=== PATIENT | male | born 1985 | race Caucasian/White ===

== ENCOUNTER 2024-05-19 15:49 | Inpatient (IN) | payer MEDICAID, SELFPAY ==
[2024-05-19] VITALS (63 sets, daily range): BP systolic 92–156; BP diastolic 56–125; PULSE 91–125; RESP 13–50; TEMP 38.1; O2SAT 89–97
--- NOTE | 2024-05-19 15:30 | DI.CT_ITS ---
Exam(s) CT HEAD CERVICAL SPINE WO EXAM: CT HEAD CERVICAL SPINE WO CLINICAL HISTORY: new onset seizure. TECHNIQUE: Imaging Protocol: Axial computed tomography images with coronal and sagittal reformatted images were created and reviewed COMPARISON: CT HEAD NECK FACIAL WO from 12/20/2015 FINDINGS: Head CT Ventricles and Extra axial spaces: Normal in size and morphology for the patient's age. Hemorrhage: None. Cerebral parenchyma: No evidence of mass or acute infarct. Midline shift: None. Brainstem/Cerebellum: Normal. Calvarium: Normal. Visualized Paranasal sinuses/Mastoids: Minimal mucosal thickening in the ethmoid sinuses. Soft tissues: Unremarkable. Cervical Spine CT BONES: Vertebral body heights are maintained. Alignment is normal. There is no evidence of acute frac ture. SOFT TISSUES: No paraspinal hematoma. The airway appears intact. No pneumothorax is seen at the lung apices. IMPRESSION: Head CT: No acute abnormality. C-spine CT: no acute abnormality. RADIATION DOSE DELIVERED: Total DLP DATA REPOSITORY: All CT scans at this facility are submitted to the National Radiology Data Registry (NRDR) Dose Index Registry (DIR) with the [employer] (ACR). RADIATION OPTIMIZATION: All CT scans at this facility use at least one of these dose optimization te chniques: automated exposure control; mA and/or kV adjustment per patient size (includes targeted exa ms where dose is matched to clinical indication); or iterative reconstruction.
--- NOTE | 2024-05-19 15:30 | RT.EKG_ITS ---
APPROVED REPORT Exam: Resting ECG Reason for Exam: seizure Patient Location: E HR:113 bpm ECG Measurements Heart Rate 113 AXIS MS 140 P 68 QRSd 89 QRS 66 QT 320 T 39 QTc 439 Conclusion Sinus tachycardia...rate> [address] segment or T wave abnormalities to suggest occlusive PA
--- NOTE | 2024-05-19 16:00 | W.ED.GENAD ---
Discharge Plan Disposition Patient Disposition: Admit to [facility] Condition: Serious Discharge Details Chief Complaint: Seizure Clinical Impression: Alcohol abuse with withdrawal, Seizure Primary Care Provider: None,None ED Provider: Hope Chu Home Meds and New Rx's Prescriptions: No Action No Known Home Meds HPI General Mode of arrival: EMS. Date/Time Provider Initiated Documentation: 05/19/24 15:57. Limitations to Documentation: no limitations. Information obtained by: patient and EMS. HPI Narrative: 38yo M with hx ETOH withdrawal, no prior hx of withdrawal seizures or hospitalizations, no prior hx of seizures, presenting with concern for seizure. Patient typically drinks 12-18 cans of beer daily. Has had nausea and vomiting for the past two days, no alcohol since last night. Today stood up get to the bathroom then fell back to the couch; brother reportedly witnessed whole body shaking for about 30 seconds. Patient remembers this event. Per EMS seemed to be post-ictal on their arrival. Patient reports that he feels back to normal now. No headache, numbness, weakness, vision changes, chest pain, shortness of breath, abdominal pain, fever, or other concerns. Related Data Home Medications ?Medication ?Instructions ?Recorded ?Confirmed Unknown [No Known Home Meds] 05/19/24 05/19/24 Allergies Allergy/AdvReac Type Severity Reaction Status Date / Time No Known Allergies Allergy Verified 05/19/24 15:50 General Stated Complaint: Seizure MELITA: 3 Review of Systems Narrative: see HPI Exam Narrative Exam Narrative: General: Alert, well appearing, well nourished, in no acute distress. Head: Normocephalic, atraumatic Neck: Trachea midline, ?Neck supple. ENT: ?MMM.? No oropharygeal lesions or exudate. Cardiac: ?RRR, no murmurs appreciated Resp: No respiratory distress. CTAB. Abd: ?Soft, non-distended, nontender : ?No suprapubic tenderness. No CVA tenderness. Extremities: ?No deformities.? No peripheral edema. Neuro: ? GCS 15.? PERRL.? EOMI.? Fluent speech, no dysarthria. Motor- 5/5 strength symmetric bilateral upper and lower extremities Sensation- ?Intact to light touch and symmetric multiple dermatomes including upper and lower extremities Coordination- No dysmetria on finger to nose. Diffuse tremors Reflexes- 2/4 achilles & patellar, no clonus Gait/station: ?Normal stance.? No truncal ataxia. Steady gait with equal normal steps CRANIAL NERVES: II: Pupils equal and reactive, III, IV, : EOM intact, no gaze preference or deviation, no nystagmus. V: normal sensation in V1, V2, and V3 segments bilaterally VII: no asymmetry, no nasolabial fold flattening VIII: normal hearing to speech IX, X: normal palatal elevation, no uvular deviation XI: 5/5 head turn and 5/5 shoulder shrug bilaterally XII: midline tongue protrusion Course Vital Signs Vital signs: Vital Signs Temperature 38.1 C H 05/19/24 15:51 Pulse 125 H 05/19/24 15:51 Respiratory Rate 20 05/19/24 15:51 Blood Pressure 156/115 H 05/19/24 15:51 Pulse Oximetry 94 05/19/24 15:51 Temperature 38.1 C H 05/19/24 15:51 Pulse 125 H 05/19/24 15:51 Respiratory Rate 20 05/19/24 15:51 Blood Pressure 156/115 H 05/19/24 15:51 Pulse Oximetry 94 05/19/24 15:51 Oxygen Delivery Method Room Air 05/19/24 15:51 Oxygen Flow Rate 0 05/19/24 15:51 Pain Level 0 05/19/24 15:51 Medical Decision Making 38yo M with hx ETOH withdrawal, no prior hx of withdrawal seizures or hospitalizations, no prior hx of seizures, presenting with concern for seizure. Patient typically drinks 12-18 cans of beer daily. Has had nausea and vomiting for the past two days, no alcohol since last night. Today stood up get to the bathroom then fell back to the couch; brother reportedly witnessed whole body shaking for about 30 seconds. Given 2mg ativan on arrival to the ED. Tachycardiac and slightly hypertensive on arrival, febrile to 38.1 (given 1g of tylenol). Anxious on exam with whole body tremors, otherwise benign physical and neurologic exam. No headache, neck pain, or neck stiffness; not suggestive of meningitis or encephalitis. CIWA on arrival 8. Concerning for possible ETOH withdrawal seizure vs convulsive syncope in the setting of volume depletion. Less likely cardiogenic syncope. Not overtly septic and denies infectious symptoms however is febrile so blood cutlures sent. Wound not treat empirically with abx at this time. [place] momin. -EKG ST, appropriate intervals, no ST segment or T wave abnormalities to suggest occlusive MD. -Respiratory viral swab negative. -Labs reviewed as below, CBC reassuring with no leukocytosis and mild anemia, CMP with mildly elevated Cr at 1.4 and no actionable abnormalities, Mg normal, etoh negative, trop reassuring x 2, dimer elevated (CTA ordered). UA not suggestive of infection, UDS pending. -CT head and c-spine independently reviewed; no ICH or mass or displaced fracture on my view, radiology reads with no acute abnormality. -CTA for PE independently reviewed; no large saddle embolus or pneumonia on my view, radiology reads with no acute abnormality. Repeat CIWA 17. Discussed with [facility] hospitalist who accepts patient for admission; phenobarb load ordered. Awaiting admission orders and transfer to the floor. Lab Data Lab results reviewed: Yes I reviewed the patient's lab results. Labs: 05/19/24 17:11 Blood Blood Culture - Pending 05/19/24 17:02 Blood Blood Culture - Pending Laboratory Tests Range/Units 05/19/24 05/19/24 05/19/24 15:20 16:15 17:31 WBC (4.4-10.8) 10^3/uL 8.70 RBC (4.36-5.78) 10^6/uL 4.17 L Hgb (13.5-17.5) g/dL 13.3 L Hct (40.0-50.0) % 37.5 L MCV (80-95) fL 90 MCH (27.0-33.0) pg 31.9 MCHC (32.0-36.0) % 35.5 RDW (11.8-14.1) % 12.4 Plt Count (130-400) 10^3/uL 104 L MPV (8.0-11.0) fL 11.1 H Immature Gran % % 0.7 Neutrophils % % 87.4 Lymphocytes % % 6.2 Monocytes % % 4.9 Eosinophils % % 0.6 Basophils % % 0.2 Nucleated RBC % (0.0-0.3) % 0.0 Absolute Neutrophils (1.2-6.7) 10^3/uL 7.60 H Absolute Lymphocytes (1.2-3.4) 10^3/uL 0.54 L Absolute Monocytes (0.1-0.8) 10^3/uL 0.43 Absolute Eosinophils (0.0-0.7) 10^3/uL 0.05 Absolute Basophils (0.0-0.2) 10^3/uL 0.02 D-Dimer (<500) ng/mlFEU 1041 H Sodium (136-145) mmol/L 134 L Potassium (3.5-5.1) mmol/L 3.5 Chloride (98-107) mmol/L 97 L Carbon Dioxide (21.0-32.0) mmol/L 22.0 Anion Gap (3-11) mmol/L 15.0 H BUN (7-18) mg/dL 12 Creatinine (0.70-1.30) mg/dL 1.4 H Est GFR (CKD-EPI 2020) (mL/min/1.73m2) 65.98 Glucose (74-106) mg/dL 181 H Calcium (8.5-10.1) mg/dL 9.2 Magnesium (1.8-2.4) mg/dL 2.2 Total Bilirubin (0.2-1.0) mg/dL 1.10 H AST (15-37) U/L 58 H ALT (16-63) U/L 59 Alkaline Phosphatase (46-116) U/L 66 Troponin I (<or=76) ng/L < 4 7 Total Protein (6.4-8.2) g/dL 7.5 Albumin (3.4-5.0) g/dL 3.7 Urine Color (Yellow) Urine Clarity (Clear) Urine pH (5-8) Ur Specific [place] (1.005-1.025) Urine Protein (Neg-Trace) mg/dL Urine Ketones (Negative) mg/dL Urine Blood (Negative) Urine Nitrite (Negative) Urine Bilirubin (Negative) Urine Urobilinogen (Up to 0.2) mg/dL Ur Leukocyte Esterase (Negative) Urine RBC (0-2) HPF Urine WBC (0-5) HPF Ur Epithelial Cells (Negative) HPF Urine Crystals (Negative) HPF Urine Bacteria (Negative) HPF Urine Casts (Negative) LPF Urine Mucus (Negative) Ur Culture Indicated? Urine Glucose (Negative) mg/dL Urine Opiates Screen (Negative) Urine Methadone Screen (Negative) Ur Barbiturates Screen (Negative) Ur Tricyclics Screen (Negative) Ur Amphetamines Screen (Negative) U Benzodiazepines Scrn (Negative) Urine Cocaine Screen (Negative) Ur THC Screen (Negative) Ethyl Alcohol (<10) mg/dL < 3.0 COVID-19 Source Nasopharynx SARS-CoV-2 (PCR) (Negative) Negative Influenza Type A (PCR) (Negative) Negative Influenza Type B (PCR) (Negative) Negative RSV (PCR) (Negative) Negative Range/Units 05/19/24 18:30 WBC (4.4-10.8) 10^3/uL RBC (4.36-5.78) 10^6/uL Hgb (13.5-17.5) g/dL Hct (40.0-50.0) % MCV (80-95) fL MCH (27.0-33.0) pg MCHC (32.0-36.0) % RDW (11.8-14.1) % Plt Count (130-400) 10^3/uL MPV (8.0-11.0) fL Immature Gran % % Neutrophils % % Lymphocytes % % Monocytes % % Eosinophils % % Basophils % % Nucleated RBC % (0.0-0.3) % Absolute Neutrophils (1.2-6.7) 10^3/uL Absolute Lymphocytes (1.2-3.4) 10^3/uL Absolute Monocytes (0.1-0.8) 10^3/uL Absolute Eosinophils (0.0-0.7) 10^3/uL Absolute Basophils (0.0-0.2) 10^3/uL D-Dimer (<500) ng/mlFEU Sodium (136-145) mmol/L Potassium (3.5-5.1) mmol/L Chloride (98-107) mmol/L Carbon Dioxide (21.0-32.0) mmol/L Anion Gap (3-11) mmol/L BUN (7-18) mg/dL Creatinine (0.70-1.30) mg/dL Est GFR (CKD-EPI 2020) (mL/min/1.73m2) Glucose (74-106) mg/dL Calcium (8.5-10.1) mg/dL Magnesium (1.8-2.4) mg/dL Total Bilirubin (0.2-1.0) mg/dL AST (15-37) U/L ALT (16-63) U/L Alkaline Phosphatase (46-116) U/L Troponin I (<or=76) ng/L Total Protein (6.4-8.2) g/dL Albumin (3.4-5.0) g/dL Urine Color (Yellow) Yellow Urine Clarity (Clear) Clear Urine pH (5-8) 6.0 Ur Specific [place] (1.005-1.025) 1.010 Urine Protein (Neg-Trace) mg/dL 30 H Urine Ketones (Negative) mg/dL 15 H Urine Blood (Negative) Negative Urine Nitrite (Negative) Negative Urine Bilirubin (Negative) Negative Urine Urobilinogen (Up to 0.2) mg/dL 0.2 Ur Leukocyte Esterase (Negative) Negative Urine RBC (0-2) HPF 0-2 Urine WBC (0-5) HPF 0-2 Ur Epithelial Cells (Negative) HPF Rare Urine Crystals (Negative) HPF Negative Urine Bacteria (Negative) HPF Rare Urine Casts (Negative) LPF 0-2 Hyaline Urine Mucus (Negative) Moderate Ur Culture Indicated? No Urine Glucose (Negative) mg/dL Negative Urine Opiates Screen (Negative) Negative Urine Methadone Screen (Negative) Negative Ur Barbiturates Screen (Negative) Negative Ur Tricyclics Screen (Negative) Negative Ur Amphetamines Screen (Negative) Negative U Benzodiazepines Scrn (Negative) Negative Urine Cocaine Screen (Negative) Negative Ur THC Screen (Negative) Positive A Ethyl Alcohol (<10) mg/dL COVID-19 Source SARS-CoV-2 (PCR) (Negative) Influenza Type A (PCR) (Negative) Influenza Type B (PCR) (Negative) RSV (PCR) (Negative) Quality:SDOH Health Related Social Needs: No Data to Display PFSH All Active Problems (Updated 05/19/24 @ 23:04 by Hope Chu MD) Seizure (Acute) Alcohol abuse with withdrawal (Acute) Nicotine dependence (Acute) As reported by Burt Matias Alcohol dependence (Acute) As reported by Burt Matias Social History (Updated 08/08/23 @ 16:18 by Thi Santos) Smoking/Tobacco Use Status: Current every day Quit status: considering quitting Smoking risk assessment performed?: Yes Alcohol Intake: current Alcohol Intake frequency: 3 or more drinks per day Drug use: Socially Substance use type: former substance user Adopted: No Caregiver/Support person: No Foster care: No Household members: family Housing: house Number of Children: 1 Communication Needs: None Education Level: high school Do you need help understanding health information?: Often 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 Pets and animals: No Do you think of yourself as: straight/heterosexual Current gender identity: male What is your relationship status?: never How often do you talk on the phone with friends or family?: three or more times per week How often do you get together with friends or relatives?: three or more times per week Do you belong to any clubs or organized social groups?: no Panel score (0-1 are the most socially isolated patients): 1 What type of physical activity do you participate in: walking and additional Details: hiking Duration: 15-30 minutes/day Frequency: 1-2 times per week Kendal/Adventist: None Seatbelt use: sometimes Helmet use: No Drive intox or ride w/intox warehouse delivery driver: No
[2024-05-19 16:26] LABS: Abs Immature Grans 0.06 10^3/uL (0.0-0.06); Absolute Basophil Count 0.02 10^3/uL (0.0-0.2); Absolute Eosinophil Count 0.05 10^3/uL (0.0-0.7); Absolute Lymphocyte Count 0.54 10^3/uL (1.2-3.4); Absolute Monocyte Count 0.43 10^3/uL (0.1-0.8); Basophils % 0.2 %; Eosinophils % 0.6 %; HCT 37.5 % (40.0-50.0); HGB 13.3 g/dL (13.5-17.5); Immature Grans % 0.7 %; Lymphocytes % 6.2 %; MCH 31.9 pg (27.0-33.0); MCHC 35.5 % (32.0-36.0); MCV 90 fL (80-95); MPV 11.1 fL (8.0-11.0); Monocytes % 4.9 %; Neutrophils % 87.4 %; Platelet Count 104 10^3/uL (130-400); RBC 4.17 10^6/uL (4.36-5.78); RDW 12.4 % (11.8-14.1); RDW-SD 41.4 fL
[2024-05-19] MEDS: LORazepam 2 MG/ML VIAL (16:32)
[2024-05-19] MEDS: MULTIVITAMIN 10 ML, THIAMINE 100 MG, FOLIC ACID 1 MG in DEXTROSE 5%-0.45% SALINE 1,000 ML 42 ML IV (16:35)
[2024-05-19 16:45] LABS: ALT 59 U/L (16-63); AST 58 U/L (15-37); Albumin 3.7 g/dL (3.4-5.0); Alkaline Phosphatase 66 U/L (46-116); BUN 12 mg/dL (7-18); CREATININE 1.4 mg/dL (0.70-1.30); Calcium 9.2 mg/dL (8.5-10.1); Chloride 97 mmol/L (98-107); Estimated GFR 65.98 (mL/min/1.73m2); Glucose 181 mg/dL (74-106); Magnesium 2.2 mg/dL (1.8-2.4); Potassium 3.5 mmol/L (3.5-5.1); Sodium 134 mmol/L (136-145); Total Protein 7.5 g/dL (6.4-8.2)
[2024-05-19 16:46] LABS: ETHANOL BLOOD < 3.0 mg/dL (<10); Troponin I < 4 ng/L (<or=76)
[2024-05-19 16:52] LABS: COVID-19 PCR Negative (Negative); Influenza A PCR Negative (Negative); Influenza B PCR Negative (Negative); RSV PCR Negative (Negative)
[2024-05-19 17:12] LABS: Source Nasopharynx
--- NOTE | 2024-05-19 17:15 | DI.CT_ITS ---
Exam(s) CT CHEST PE CTA EXAM: CT CHEST PE CTA CLINICAL HISTORY: elevated dimer, tachycardia, syncope vs seizure. TECHNIQUE: Imaging Protocol: Axial CT angiography was performed with multi-slice acquisition and mu lti-planar reconstructions as well as axial, coronal and sagittal MIP reconstructions. Computer aided detection (CAD) was utilized. CONTRAST MATERIAL: Intravenous: Omnipaque 350 Contrast volume:75ml COMPARISON: No exams were available for comparison FINDINGS: Pulmonary Arteries: No evidence of filling defect to suggest pulmonary emboli. Mediastinum and Chantelle: No dominant adenopathy or fluid collection. Pulmonary parenchyma: No consolidation or dominant measurable mass. Pleura: No effusion or pneumothorax. Heart: The heart is not dilated. No coronary artery calcifications are seen. Aorta: Thoracic aorta non-dilated. No dissection. Upper abdomen: No acute findings. Severe hepatic steatosis. Bones: Unremarkable for age. Tubes, Catheters, and Lines: None Soft tissues: Unremarkable. IMPRESSION: No evidence of pulmonary embolism or other acute abnormality in the chest. RADIATION DOSE DELIVERED: Total DLP DATA REPOSITORY: All CT scans at this facility are submitted to the National Radiology Data Registry (NRDR) Dose Index Registry (DIR) with the [employer] (ACR). RADIATION OPTIMIZATION: All CT scans at this facility use at least one of these dose optimization te chniques: automated exposure control; mA and/or kV adjustment per patient size (includes targeted exa ms where dose is matched to clinical indication); or iterative reconstruction.
[2024-05-19 17:20] LABS: D-Dimer 1041 ng/mlFEU (<500)
[2024-05-19] MEDS: Acetaminophen 500 MG TAB 1000 MG PO (17:25)
[2024-05-19] MEDS: Normal Saline - Diluent 50 ML VIAL IJ (17:34)
[2024-05-19] MEDS: Omnipaque 350 MG/ML 100 ML BTL IJ (17:35)
[2024-05-19 18:02] LABS: Troponin I 7 ng/L (<or=76)
[2024-05-19 18:52] LABS: Bilirubin Negative (Negative); Blood Negative (Negative); Clarity Clear (Clear); Glucose Negative (Negative); Ketones 15 mg/dL (Negative); Leukocyte Esterase Negative (Negative); Nitrite Negative (Negative); Urobilinogen 0.2 mg/dL (Up to 0.2)
[2024-05-19] MEDS: LORazepam 1 MG TAB PO/SL ×2 (18:57→21:47)
[2024-05-19 19:10] LABS: Bacteria Rare HPF (Negative); C & S Indicated? No; Casts 0-2 Hyaline LPF (Negative); Crystals Negative HPF (Negative); Epithelial Cells Rare HPF (Negative); Mucus Moderate (Negative); RBC 0-2 HPF (0-2); WBC 0-2 HPF (0-5)
[2024-05-19 21:51] LABS: *AMPHETAMINES SCREEN URINE Negative (Negative); *BARBITURATES SCREEN URINE Negative (Negative); *BENZODIAZEPINES SCREEN URINE Negative (Negative); Cannabinoids THC Positive (Negative); Cocaine Screen,Urine Negative (Negative); METHADONE URINE SCREEN Negative (Negative); OPIATES URINE SCREEN Negative (Negative)
[2024-05-19 21:52] LABS: Tricyclic Antidepressants Negative (Negative)
--- NOTE | 2024-05-19 23:20 | HPE_ITS ---
Date of service: 05/19/24 Time of Service: 23:20 Assessment and Plan Assessment and plan (1) Alcohol abuse with withdrawal: Start date: 05/19/24 Status: Acute Assessment and plan: This is a 38-year-old gentleman presenting with nausea and vomiting with low- grade fever but no obvious source of infection other than gastrointestinal symptoms with possible gastroenteritis. He is dry and now as well as her alcohol withdrawal with a negative alcohol level usually drinking 12 to 18 beers a day. He has had alcohol withdrawal in the past but no alcohol withdrawal seizures. There is a question of tremors just prior to presentation with patient having full memory of the event. EMS demand appears postictal upon presentation to the house but in the ED provider thought it was clear. He was less clear during my observation. He will be treated with phenobarbital alcohol withdrawal protocol and monitor closely for other sources of infection with blood cultures performed. He will be treated with Tylenol. Trend labs. With his worsening withdrawal symptoms, he will be admitted to the ICU. He is a full code. (2) Gastroenteritis: Start date: 05/19/24 Status: Acute Assessment and plan: Bowel rest with clear fluid diet as tolerated, check lipase. IV hydration. Trend labs. (3) Acute dehydration: Start date: 05/19/24 Status: Acute Assessment and plan: Patient appears to be dry with his recent loss of fluid with vomiting and diarrhea. Bowel rest and clear fluids and IV hydration. Patient may have an acute gastroenteritis. (4) Nicotine dependence: Status: Chronic Assessment and plan: Patient does smoke pot mostly but also smokes cigarettes but this been unclear. Nicotine patch for comfort. (5) Substance use disorder: Status: Chronic Assessment and plan: Patient does heavily use THC by history but no evidence of other substance abuse. The VPMS is negative for any prescribed controlled substances. Urine drug screen is negative for any illicit drugs but positive for THC. Continue to monitor at home patient goes to alcohol withdrawal. No further urine drug screen testing. History of Present Illness History of Present Illness Chief Complaint: Nausea vomiting for 2 days with possible seizure and alcohol withdrawal. Narrative: This is a 38-year-old male patient who has a history of drinking 12-18 beers a day recently having nausea and vomiting and not able to keep things down. He has had alcohol withdrawals in the past but no alcohol withdrawal seizures. His brother reported that patient had shaking for 30 seconds and when the EMS arrived and they thought he may be postictal but patient has full memory of the event when interviewed by the ED provider. By the time I saw the patient, he was more confused and less able to give accurate history. He is going through active alcohol withdrawals. He was becoming encephalopathic. He did have a fever upon presentation but imaging did not reveal any infiltrates that urine was normal. Blood cultures were performed. Viral screens were negative as well. Patient does not have a history of recent substance abuse but has a history of previous use. The VPMS was negative for any prescribed opiates or controlled substances. Urine drug screen did not reveal any illicit drugs. Patient was not able to give further history. He is admitted for IV hydration and alcohol withdrawal and monitoring of his febrile illness. He will be on bowel rest and clear fluids and phenobarbital alcohol withdrawal protocol. He is a full code. Review of Systems Narrative: 13 point review of systems otherwise unobtainable with patient becoming encephalopathic. There was no reported cough. I do not think the patient was aware of having fever at home. PFSH All Active Problems (Updated 05/20/24 @ 06:09 by Samir Monge) Gastroenteritis (Acute) Substance use disorder (Chronic) Acute dehydration (Acute) Seizure (Acute) Alcohol abuse with withdrawal (Acute) Nicotine dependence (Chronic) As reported by Burt Matias Alcohol dependence (Acute) As reported by Burt Matias Social History Smoking/Tobacco Use Status: Current every day Quit status: considering quitting Smoking risk assessment performed?: Yes Alcohol Intake: current Alcohol Intake frequency: 3 or more drinks per day Drug use: Daily Substance use type: former substance user Adopted: No Caregiver/Support person: No Foster care: No Household members: family Housing: house Number of Children: 1 Communication Needs: None Education Level: high school Do you need help understanding health information?: Often 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 Pets and animals: No Do you think of yourself as: straight/heterosexual Current gender identity: male What is your relationship status?: never How often do you talk on the phone with friends or family?: three or more times per week How often do you get together with friends or relatives?: three or more times per week Do you belong to any clubs or organized social groups?: no Panel score (0-1 are the most socially isolated patients): 1 What type of physical activity do you participate in: walking and additional Details: hiking Duration: 15-30 minutes/day Frequency: 1-2 times per week Kendal/Nondenominational: None Seatbelt use: sometimes Helmet use: No Drive intox or ride w/intox 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 In no acute distress. Flat affect with poor eye contact. HEENT: Normocephalic, eyes with pupils equal and reactive light symmetrically, extraocular with intact and sclera anicteric. Dry oral mucosa. Neck: Supple without JVD. Back: Stooped posture without CVA tenderness. Lungs: Raspy breath sounds with coarse crackle but no focalizing rales or rhonchi. No expiratory wheeze. Patient is tachypneic. Heart: Tachycardic without murmur or gallop appreciated. Abdomen: Normal contour, soft to palpation with no guarding or rebound. No palpable hepatosplenomegaly. Bowel sounds positive all quadrants. Extremities: Without clubbing, cyanosis or pitting edema. Peripheral pulses intact. Skin: Moist and warm. Normal color. Neuro: Cranial nerves II through XII appear grossly intact. No focalizing motor deficits. No obvious tremor. Psych: Flattened affect with mood uninterpretable as patient becoming more encephalopathic with his alcohol withdrawal. No abnormal thought processes when I examined the patient with nurse did report patient having visual hallucinations later in the credentialing coordinator. Her most recent memory not testable with patient's encephalopathic state. Results Imaging Imaging Studies: CT CHEST PE CTA EXAM: CT CHEST PE CTA CLINICAL HISTORY: elevated dimer, tachycardia, syncope vs seizure. TECHNIQUE: Imaging Protocol: Axial CT angiography was performed with multi- slice acquisition and multi-planar reconstructions as well as axial, coronal and sagittal MIP reconstructions. Computer aided detection (CAD) was utilized. CONTRAST MATERIAL: Intravenous: Omnipaque 350 Contrast volume:75ml COMPARISON: No exams were available for comparison FINDINGS: Pulmonary Arteries: No evidence of filling defect to suggest pulmonary emboli. Mediastinum and Chantelle: No dominant adenopathy or fluid collection. Pulmonary parenchyma: No consolidation or dominant measurable mass. Pleura: No effusion or pneumothorax. Heart: The heart is not dilated. No coronary artery calcifications are seen. Aorta: Thoracic aorta non-dilated. No dissection. Upper abdomen: No acute findings. Severe hepatic steatosis. Bones: Unremarkable for age. Tubes, Catheters, and Lines: None Soft tissues: Unremarkable. IMPRESSION: No evidence of pulmonary embolism or other acute abnormality in the chest. EXAM: CT HEAD CERVICAL SPINE WO CLINICAL HISTORY: new onset seizure. TECHNIQUE: Imaging Protocol: Axial computed tomography images with coronal and sagittal reformatted images were created and reviewed COMPARISON: CT HEAD NECK FACIAL WO from 12/20/2015 FINDINGS: Head CT Ventricles and Extra axial spaces: Normal in size and morphology for the patient's age. Hemorrhage: None. Cerebral parenchyma: No evidence of mass or acute infarct. Midline shift: None. Brainstem/Cerebellum: Normal. Calvarium: Normal. Visualized Paranasal sinuses/Mastoids: Minimal mucosal thickening in the ethmoid sinuses. Soft tissues: Unremarkable. Cervical Spine CT BONES: Vertebral body heights are maintained. Alignment is normal. There is no evidence of acute fracture. SOFT TISSUES: No paraspinal hematoma. The airway appears intact. No pneumothorax is seen at the lung apices. IMPRESSION: Head CT: No acute abnormality. C-spine CT: no acute abnormality. Labs 05/19/24 16:15 05/19/24 16:15 Labs: Laboratory Results - last 24 hr 05/19/24 05/19/24 05/19/24 15:20 16:15 17:31 WBC 8.70 RBC 4.17 L Hgb 13.3 L Hct 37.5 L MCV 90 MCH 31.9 MCHC 35.5 RDW 12.4 Plt Count 104 L MPV 11.1 H Immature Gran % 0.7 Neutrophils % 87.4 Lymphocytes % 6.2 Monocytes % 4.9 Eosinophils % 0.6 Basophils % 0.2 Nucleated RBC % 0.0 Absolute Neutrophils 7.60 H Absolute Lymphocytes 0.54 L Absolute Monocytes 0.43 Absolute Eosinophils 0.05 Absolute Basophils 0.02 D-Dimer 1041 H Sodium 134 L Potassium 3.5 Chloride 97 L Carbon Dioxide 22.0 Anion Gap 15.0 H BUN 12 Creatinine 1.4 H Est GFR (CKD-EPI 2020) 65.98 Glucose 181 H Calcium 9.2 Magnesium 2.2 Total Bilirubin 1.10 H AST 58 H ALT 59 Alkaline Phosphatase 66 Troponin I < 4 7 Total Protein 7.5 Albumin 3.7 Urine Color Urine Clarity Urine pH Ur Specific [place] Urine Protein Urine Ketones Urine Blood Urine Nitrite Urine Bilirubin Urine Urobilinogen Ur Leukocyte Esterase Urine RBC Urine WBC Ur Epithelial Cells Urine Crystals Urine Bacteria Urine Casts Urine Mucus Ur Culture Indicated? Urine Glucose Urine Opiates Screen Urine Methadone Screen Ur Barbiturates Screen Ur Tricyclics Screen Ur Amphetamines Screen U Benzodiazepines Scrn Urine Cocaine Screen Ur THC Screen Ethyl Alcohol < 3.0 COVID-19 Source Nasopharynx SARS-CoV-2 (PCR) Negative Influenza Type A (PCR) Negative Influenza Type B (PCR) Negative RSV (PCR) Negative 05/19/24 18:30 WBC RBC Hgb Hct MCV MCH MCHC RDW Plt Count MPV Immature Gran % Neutrophils % Lymphocytes % Monocytes % Eosinophils % Basophils % Nucleated RBC % Absolute Neutrophils Absolute Lymphocytes Absolute Monocytes Absolute Eosinophils Absolute Basophils D-Dimer Sodium Potassium Chloride Carbon Dioxide Anion Gap BUN Creatinine Est GFR (CKD-EPI 2020) Glucose Calcium Magnesium Total Bilirubin AST ALT Alkaline Phosphatase Troponin I Total Protein Albumin Urine Color Yellow Urine Clarity Clear Urine pH 6.0 Ur Specific [place] 1.010 Urine Protein 30 H Urine Ketones 15 H Urine Blood Negative Urine Nitrite Negative Urine Bilirubin Negative Urine Urobilinogen 0.2 Ur Leukocyte Esterase Negative Urine RBC 0-2 Urine WBC 0-2 Ur Epithelial Cells Rare Urine Crystals Negative Urine Bacteria Rare Urine Casts 0-2 Hyaline Urine Mucus Moderate Ur Culture Indicated? No Urine Glucose Negative Urine Opiates Screen Negative Urine Methadone Screen Negative Ur Barbiturates Screen Negative Ur Tricyclics Screen Negative Ur Amphetamines Screen Negative U Benzodiazepines Scrn Negative Urine Cocaine Screen Negative Ur THC Screen Positive A Ethyl Alcohol COVID-19 Source SARS-CoV-2 (PCR) Influenza Type A (PCR) Influenza Type B (PCR) RSV (PCR) Last Vital Signs Temp 38.1 C H 05/19/24 15:51 Pulse 117 H 05/19/24 21:42 Resp 16 05/19/24 21:20 BP 121/74 05/19/24 21:16 Pulse Ox 95 05/19/24 21:42 PAWSS Have you Been Recently Intoxicated or Drunk Within the Last 30 days?: Yes Have you Ever Experienced Previous Episodes of Alcohol Withdrawal?: No Have you ever Experienced Withdrawal Seizures?: No Have you ever Experienced Delirium Tremens(DT)s?: No Have you ever undergone Alcohol Rehabilitation Treatment (i.e, inpt ot outpatient treatment programs)?: Yes Have you ever Experienced Blackouts?: No Have you ever Combined Alcohol with other Downers within the last 90 days?: No Have you ever Combined Alcohol with any other Substance of Abuse during the last 90 days?: No Evidence of Increased Autonomic Activity (i.e. HR>120, tremor, sweating, agitation, nausea)?: Yes Result: 3 Time Spent Time spent with Patient: >75 minutes Time was spent: preparing to see the patient(eg.review tests), obtaining and/or reviewing separately otained hiistory, ordering medications,tests, procedures, indepentently interpreting results and care coordination
[2024-05-19] MEDS: PHENobarbital 150 MG in Normal Saline 50 ML 100 MG IVPB (23:40)
[2024-05-20] VITALS (40 sets, daily range): BP systolic 87–167; BP diastolic 61–96; PULSE 72–123; RESP 11–27; TEMP 37.2–38; O2SAT 87–100
[2024-05-20] MEDS: PHENobarbital 110 MG in Normal Saline 50 ML 100 MG IVPB ×2 (00:35→02:08)
--- NOTE | 2024-05-20 00:37 | W.PCEDHO ---
Registration Status: Primary Language: Preferred Language: ED Information & Data Chief Complaint Seizure 05/19/24 16:00 Triage Note witnessed 'seizure' by 05/19/24 15:51 brother, pt stood up to use bathroom and suddenly fell backwards with appx 20 sec no alcohol since last night, recently trouble keeping liquids down, able to eat a varied diet with vomiting. Most Recent Vital Signs Temperature 38.1 C H 05/19/24 15:51 Pulse 97 H 05/19/24 23:46 Pulse 97 H 05/19/24 23:50 Respiratory Rate 19 05/19/24 23:50 Respiratory Effort Non-Labored 05/19/24 16:02 Respiratory Depth Normal 05/19/24 16:02 Respiratory Pattern Normal 05/19/24 23:45 Blood Pressure 141/100 H 05/19/24 23:46 Blood Pressure Mean 114 05/19/24 23:46 Pulse Oximetry 95 05/19/24 23:25 Oxygen Delivery Method Room Air 05/19/24 15:51 Oxygen Flow Rate 0 05/19/24 15:51 Pain Level 0 05/19/24 15:51 Allergies No Known Allergies Allergy (Verified 05/19/24 15:50) Precautions Isolation PUI 05/19/24 15:59 Active Medications Generic Name Dose Route Start Last Admin Trade Name uTckerq PRN Reason Stop Dose Admin Multivitamins 10 ml/ Thiamine 1,011.2 mls @ 42 mls/hr 05/20/24 08:30 05/19/24 23:44 HCl 100 mg/ Folic Acid 1 mg/ IV Infused Dextrose/Sodium Chloride DAILY JESUS ALBERTO Infusion Iohexol 100 ml 05/19/24 17:45 05/19/24 17:35 Omnipaque 350 Mg/Ml 100 Ml Btl IJ 06/18/24 23:59 100 ml DIRECTED JESUS ALBERTO Administration Sodium Chloride 50 ml 05/19/24 17:45 05/19/24 17:34 Normal Saline - Diluent 50 Ml Vial IJ 50 ml .FOR DI USE JESUS ALBERTO Administration IV IV Catheter Type [Left Forearm Peripheral IV ] IV Catheter Type [Right Peripheral IV Forearm] IV Catheter Gauge [Left 18 Forearm] IV Catheter Gauge [Right 18 Forearm] IV Catheter Gauge [Left 18 Antecubital] Diagnostics 05/20/24 05/19/24 05/19/24 Range/Units 05:35 18:30 17:31 WBC Pending (4.4-10.8) 10^3/uL RBC Pending (4.36-5.78) 10^6/uL Hgb Pending (13.5-17.5) g/dL Hct Pending (40.0-50.0) % MCV Pending (80-95) fL MCH Pending (27.0-33.0) pg MCHC Pending (32.0-36.0) % RDW Pending (11.8-14.1) % Plt Count Pending (130-400) 10^3/uL MPV Pending (8.0-11.0) fL Immature Gran % Pending % Neutrophils % Pending % Lymphocytes % Pending % Monocytes % Pending % Eosinophils % Pending % Basophils % Pending % Nucleated RBC % (0.0-0.3) % Absolute Neutrophils Pending (1.2-6.7) 10^3/uL Absolute Lymphocytes Pending (1.2-3.4) 10^3/uL Absolute Monocytes Pending (0.1-0.8) 10^3/uL Absolute Eosinophils Pending (0.0-0.7) 10^3/uL Absolute Basophils Pending (0.0-0.2) 10^3/uL D-Dimer (<500) ng/mlFEU Sodium (136-145) mmol/L Potassium (3.5-5.1) mmol/L Chloride (98-107) mmol/L Carbon Dioxide (21.0-32.0) mmol/L Anion Gap (3-11) mmol/L BUN (7-18) mg/dL Creatinine (0.70-1.30) mg/dL Est GFR (CKD-EPI 2020) (mL/min/1.73m2) Glucose (74-106) mg/dL Calcium (8.5-10.1) mg/dL Magnesium (1.8-2.4) mg/dL Total Bilirubin (0.2-1.0) mg/dL AST (15-37) U/L ALT (16-63) U/L Alkaline Phosphatase (46-116) U/L Troponin I 7 (<or=76) ng/L Total Protein (6.4-8.2) g/dL Albumin (3.4-5.0) g/dL Prolactin Urine Color Yellow (Yellow) Urine Clarity Clear (Clear) Urine pH 6.0 (5-8) Ur Specific [place] 1.010 (1.005-1.025) Urine Protein 30 H (Neg-Trace) mg/dL Urine Ketones 15 H (Negative) mg/dL Urine Blood Negative (Negative) Urine Nitrite Negative (Negative) Urine Bilirubin Negative (Negative) Urine Urobilinogen 0.2 (Up to 0.2) mg/dL Ur Leukocyte Esterase Negative (Negative) Urine RBC 0-2 (0-2) HPF Urine WBC 0-2 (0-5) HPF Ur Epithelial Cells Rare (Negative) HPF Urine Crystals Negative (Negative) HPF Urine Bacteria Rare (Negative) HPF Urine Casts 0-2 Hyaline (Negative) LPF Urine Mucus Moderate (Negative) Ur Culture Indicated? No Urine Glucose Negative (Negative) mg/dL Urine Opiates Screen Negative (Negative) Urine Methadone Screen Negative (Negative) Ur Barbiturates Screen Negative (Negative) Ur Tricyclics Screen Negative (Negative) Ur Amphetamines Screen Negative (Negative) U Benzodiazepines Scrn Negative (Negative) Urine Cocaine Screen Negative (Negative) Ur THC Screen Positive A (Negative) Ethyl Alcohol (<10) mg/dL COVID-19 Source SARS-CoV-2 (PCR) (Negative) Influenza Type A (PCR) (Negative) Influenza Type B (PCR) (Negative) RSV (PCR) (Negative) 05/19/24 05/19/24 Range/Units 16:15 15:20 WBC 8.70 (4.4-10.8) 10^3/uL RBC 4.17 L (4.36-5.78) 10^6/uL Hgb 13.3 L (13.5-17.5) g/dL Hct 37.5 L (40.0-50.0) % MCV 90 (80-95) fL MCH 31.9 (27.0-33.0) pg MCHC 35.5 (32.0-36.0) % RDW 12.4 (11.8-14.1) % Plt Count 104 L (130-400) 10^3/uL MPV 11.1 H (8.0-11.0) fL Immature Gran % 0.7 % Neutrophils % 87.4 % Lymphocytes % 6.2 % Monocytes % 4.9 % Eosinophils % 0.6 % Basophils % 0.2 % Nucleated RBC % 0.0 (0.0-0.3) % Absolute Neutrophils 7.60 H (1.2-6.7) 10^3/uL Absolute Lymphocytes 0.54 L (1.2-3.4) 10^3/uL Absolute Monocytes 0.43 (0.1-0.8) 10^3/uL Absolute Eosinophils 0.05 (0.0-0.7) 10^3/uL Absolute Basophils 0.02 (0.0-0.2) 10^3/uL D-Dimer 1041 H (<500) ng/mlFEU Sodium 134 L (136-145) mmol/L Potassium 3.5 (3.5-5.1) mmol/L Chloride 97 L (98-107) mmol/L Carbon Dioxide 22.0 (21.0-32.0) mmol/L Anion Gap 15.0 H (3-11) mmol/L BUN 12 (7-18) mg/dL Creatinine 1.4 H (0.70-1.30) mg/dL Est GFR (CKD-EPI 2020) 65.98 (mL/min/1.73m2) Glucose 181 H (74-106) mg/dL Calcium 9.2 (8.5-10.1) mg/dL Magnesium 2.2 (1.8-2.4) mg/dL Total Bilirubin 1.10 H (0.2-1.0) mg/dL AST 58 H (15-37) U/L ALT 59 (16-63) U/L Alkaline Phosphatase 66 (46-116) U/L Troponin I < 4 (<or=76) ng/L Total Protein 7.5 (6.4-8.2) g/dL Albumin 3.7 (3.4-5.0) g/dL Prolactin Pending Urine Color (Yellow) Urine Clarity (Clear) Urine pH (5-8) Ur Specific [place] (1.005-1.025) Urine Protein (Neg-Trace) mg/dL Urine Ketones (Negative) mg/dL Urine Blood (Negative) Urine Nitrite (Negative) Urine Bilirubin (Negative) Urine Urobilinogen (Up to 0.2) mg/dL Ur Leukocyte Esterase (Negative) Urine RBC (0-2) HPF Urine WBC (0-5) HPF Ur Epithelial Cells (Negative) HPF Urine Crystals (Negative) HPF Urine Bacteria (Negative) HPF Urine Casts (Negative) LPF Urine Mucus (Negative) Ur Culture Indicated? Urine Glucose (Negative) mg/dL Urine Opiates Screen (Negative) Urine Methadone Screen (Negative) Ur Barbiturates Screen (Negative) Ur Tricyclics Screen (Negative) Ur Amphetamines Screen (Negative) U Benzodiazepines Scrn (Negative) Urine Cocaine Screen (Negative) Ur THC Screen (Negative) Ethyl Alcohol < 3.0 (<10) mg/dL COVID-19 Source Nasopharynx SARS-CoV-2 (PCR) Negative (Negative) Influenza Type A (PCR) Negative (Negative) Influenza Type B (PCR) Negative (Negative) RSV (PCR) Negative (Negative) 05/19/24 17:11 Blood Culture - Pending Blood 05/19/24 17:02 Blood Culture - Pending Blood Intake and Output - 24 Hour Total 05/19/24 15:37 thru 05/20/24 00:35 Intake Total 1062.3538 Balance 1062.3538 Weight 79.8 kg Intake: IV 1062.3538 Falls Risk Assessment History of Falls No History 05/19/24 16:01 Fall Total Score 0 05/19/24 16:01 Level of Risk Standard/Low Risk 05/19/24 16:01 Problems (Last Reviewed 05/19/24 @ 23:22 by Samir Monge) Intractable cyclical vomiting with nausea (Acute) Alcohol abuse with withdrawal (Acute) Nicotine dependence (Chronic) v v v v v v v v v Sending and/or Receiving Nurses: Please use comment section below to note any information pertinent to the patient hand-off not included above. Information / Comments: Report received from: Maurizio
[2024-05-20] MEDS: PHENobarbital 130 MG/ML VIAL IVP ×7 (01:27→14:56)
[2024-05-20] MEDS: Enoxaparin 40 MG/0.4 ML SYR SC ×2 (01:27→23:35)
[2024-05-20] MEDS: Normal Saline Flush 10 ML SYR IVP ×7 (01:27→20:08)
[2024-05-20] MEDS: Lactated Ringers 1,000 ML 150 ML IV (01:32)
[2024-05-20] MEDS: Nicotine 21 MG/24 HR PATCH TD (01:34)
--- NOTE | 2024-05-20 04:44 | NUR.NOTE ---
I went into pt chart to verify information for Med Surg.
[2024-05-20 06:42] LABS: Abs Immature Grans 0.05 10^3/uL (0.0-0.06); HCT 33.8 % (40.0-50.0); MCH 31.9 pg (27.0-33.0); MCHC 35.5 % (32.0-36.0); MCV 90 fL (80-95); MPV 11.8 fL (8.0-11.0); Platelet Count 101 10^3/uL (130-400); RBC 3.76 10^6/uL (4.36-5.78); RDW 12.5 % (11.8-14.1); RDW-SD 40.8 fL; WBC 10.12 10^3/uL (4.4-10.8)
[2024-05-20 06:56] LABS: Lipase 38 U/L (<78)
[2024-05-20 07:04] LABS: Absolute Lymphocyte Count 0.91 10^3/uL (1.2-3.4); Absolute Monocyte Count 0.91 10^3/uL (0.1-0.8); Atypical Lymphocytes % 3 %; Diff Comment Manual Differential; RBC Morphology Normal
[2024-05-20 07:09] LABS: ALT 52 U/L (16-63); AST 62 U/L (15-37); Albumin 3.5 g/dL (3.4-5.0); Alkaline Phosphatase 57 U/L (46-116); Anion Gap 11.3 mmol/L (3-11); BUN 9 mg/dL (7-18); Bilirubin, Direct 0.4 mg/dL (0.0-0.2); Bilirubin, Total 1.28 mg/dL (0.2-1.0); CO2 24.7 mmol/L (21.0-32.0); CREATININE 0.9 mg/dL (0.70-1.30); Calcium 8.9 mg/dL (8.5-10.1); Chloride 98 mmol/L (98-107); Estimated GFR 112.11 (mL/min/1.73m2); Glucose 103 mg/dL (74-106); Magnesium 1.9 mg/dL (1.8-2.4); PHOSPHORUS 2.5 mg/dL (2.6-4.7); Sodium 134 mmol/L (136-145); Total Protein 6.8 g/dL (6.4-8.2)
[2024-05-20 07:14] LABS: Potassium 2.9 mmol/L (3.5-5.1)
--- NOTE | 2024-05-20 08:41 | PGE_ITS ---
Date of Service Date of service: 05/20/24 Time of Service: 08:41 Assessment and Plan Assessment and plan (1) Alcohol abuse with withdrawal: Start date: 05/19/24 Status: Acute Assessment and plan: Negative alcohol level at admission, usually drinking 12 to 18 beers a day, likely had been drinking less for a few days with acute illness. He has had alcohol withdrawal in the past but no alcohol withdrawal seizures. On phenobarbital alcohol withdrawal protocol with close monitoring in ICU given mental status. If we approach hard stop, get levels, consider precedex for sedation I am concerned for DTs given we may be 2-3 days into withdrawal already and report of hallicunations, some hyperthermia. He got thiamine/sugar in bananna bag. 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 Changing fluids to glucose containing and add high dose thiamine as this is low risk intervention (2) Gastroenteritis: Start date: 05/19/24 Status: Acute Assessment and plan: Bowel rest with clear fluid diet as tolerated, lipase normal. Continue IV hydration. Supportive care. With fever get stool pathogens and c. diff. (3) Nicotine dependence: Status: Chronic Assessment and plan: Patient does smoke pot mostly but also smokes cigarettes but this been unclear. Nicotine patch for comfort. (4) Substance use disorder: Status: Chronic Assessment and plan: Patient does heavily use THC by history but no evidence of other substance abuse. The VPMS is negative for any prescribed controlled substances. Urine drug screen is negative for any illicit drugs but positive for THC, no other use per family. Offer therapy for alcohol use disorder once he is through withdrawal. (5) DVT prophylaxis: Status: Acute Assessment and plan: enoxaparin Subjective Subjective Patient reports: fever (low grade overnight); denies nausea, vomiting or shortness of breath Interval history since last seen: 24: Admitted on phenobarbital protocol overnight Brother called. States Jag wasn't feeling well for a few days, but did drink at [employer], one beer the next day before he came in. Per staff veterinarian was confused overnight, calms with phenobarbital. Exam Narrative Exam Narrative: General: Somnolents, but awakens, asked to use commode, confused but redirectable, oriented to self only, not combative. HEENT: pupils mid sized and reactive, no icterus. Lungs: CTAB, normal effort Heart: Tachycardic without murmur or gallop appreciated. Abdomen: soft, NT. loose brown stool Extremities: Without clubbing, cyanosis or pitting edema. Peripheral pulses intact. Neuro: focalizing motor deficits. No tremor. Psych: Flattened affect, no clear hallucinations. Objective Last Vital Signs Temp 38.0 C H 05/20/24 06:01 Pulse 88 05/20/24 06:46 Resp 25 H 05/20/24 06:46 BP 122/81 05/20/24 06:46 Pulse Ox 100 05/20/24 01:16 Laboratory Results - last 24 hr 05/19/24 05/19/24 05/19/24 15:20 16:15 17:31 WBC 8.70 RBC 4.17 L Hgb 13.3 L Hct 37.5 L MCV 90 MCH 31.9 MCHC 35.5 RDW 12.4 Plt Count 104 L MPV 11.1 H Immature Gran % 0.7 Neutrophils % 87.4 Lymphocytes % 6.2 Atypical Lymphs % Monocytes % 4.9 Eosinophils % 0.6 Basophils % 0.2 Nucleated RBC % 0.0 Absolute Neutrophils 7.60 H Absolute Lymphocytes 0.54 L Absolute Monocytes 0.43 Absolute Eosinophils 0.05 Absolute Basophils 0.02 RBC Morphology D-Dimer 1041 H Sodium 134 L Potassium 3.5 Chloride 97 L Carbon Dioxide 22.0 Anion Gap 15.0 H BUN 12 Creatinine 1.4 H Est GFR (CKD-EPI 2020) 65.98 Glucose 181 H Calcium 9.2 Phosphorus Magnesium 2.2 Total Bilirubin 1.10 H Conjugated Bilirubin AST 58 H ALT 59 Alkaline Phosphatase 66 Troponin I < 4 7 Total Protein 7.5 Albumin 3.7 Lipase Urine Color Urine Clarity Urine pH Ur Specific [place] Urine Protein Urine Ketones Urine Blood Urine Nitrite Urine Bilirubin Urine Urobilinogen Ur Leukocyte Esterase Urine RBC Urine WBC Ur Epithelial Cells Urine Crystals Urine Bacteria Urine Casts Urine Mucus Ur Culture Indicated? Urine Glucose Urine Opiates Screen Urine Methadone Screen Ur Barbiturates Screen Ur Tricyclics Screen Ur Amphetamines Screen U Benzodiazepines Scrn Urine Cocaine Screen Ur THC Screen Ethyl Alcohol < 3.0 COVID-19 Source Nasopharynx SARS-CoV-2 (PCR) Negative Influenza Type A (PCR) Negative Influenza Type B (PCR) Negative RSV (PCR) Negative 05/19/24 05/20/24 18:30 05:40 WBC 10.12 RBC 3.76 L Hgb 12.0 L Hct 33.8 L MCV 90 MCH 31.9 MCHC 35.5 RDW 12.5 Plt Count 101 L MPV 11.8 H Immature Gran % See Differential Neutrophils % 82.0 Lymphocytes % 6.0 Atypical Lymphs % 3 Monocytes % 9.0 Eosinophils % 0.0 Basophils % 0.0 Nucleated RBC % 0.0 Absolute Neutrophils 8.30 H Absolute Lymphocytes 0.91 L Absolute Monocytes 0.91 H Absolute Eosinophils 0.00 Absolute Basophils 0.00 RBC Morphology Normal D-Dimer Sodium 134 L Potassium 2.9 L* Chloride 98 Carbon Dioxide 24.7 Anion Gap 11.3 H BUN 9 Creatinine 0.9 Est GFR (CKD-EPI 2020) 112.11 Glucose 103 Calcium 8.9 Phosphorus 2.5 L Magnesium 1.9 Total Bilirubin 1.28 H Conjugated Bilirubin 0.4 H AST 62 H ALT 52 Alkaline Phosphatase 57 Troponin I Total Protein 6.8 Albumin 3.5 Lipase 38 Urine Color Yellow Urine Clarity Clear Urine pH 6.0 Ur Specific [place] 1.010 Urine Protein 30 H Urine Ketones 15 H Urine Blood Negative Urine Nitrite Negative Urine Bilirubin Negative Urine Urobilinogen 0.2 Ur Leukocyte Esterase Negative Urine RBC 0-2 Urine WBC 0-2 Ur Epithelial Cells Rare Urine Crystals Negative Urine Bacteria Rare Urine Casts 0-2 Hyaline Urine Mucus Moderate Ur Culture Indicated? No Urine Glucose Negative Urine Opiates Screen Negative Urine Methadone Screen Negative Ur Barbiturates Screen Negative Ur Tricyclics Screen Negative Ur Amphetamines Screen Negative U Benzodiazepines Scrn Negative Urine Cocaine Screen Negative Ur THC Screen Positive A Ethyl Alcohol COVID-19 Source SARS-CoV-2 (PCR) Influenza Type A (PCR) Influenza Type B (PCR) RSV (PCR) PAWSS Have you Been Recently Intoxicated or Drunk Within the Last 30 days?: Yes Have you Ever Experienced Previous Episodes of Alcohol Withdrawal?: Yes Have you ever Experienced Withdrawal Seizures?: Yes Have you ever Experienced Delirium Tremens(DT)s?: Yes Have you ever undergone Alcohol Rehabilitation Treatment (i.e, inpt ot outpatient treatment programs)?: Yes Have you ever Experienced Blackouts?: Yes Have you ever Combined Alcohol with other Downers within the last 90 days?: Yes Have you ever Combined Alcohol with any other Substance of Abuse during the last 90 days?: Yes Positive Blood Alcohol level on Presentation? [PCS.BAL]: Yes Evidence of Increased Autonomic Activity (i.e. HR>120, tremor, sweating, agitation, nausea)?: Yes Result: 10 Time Spent with Patient Time Spent with Patient: >50 minutes Time was spent: preparing to see the patient(eg.review tests), obtaining and/or reviewing separately otained hiistory, ordering medications,tests, procedures, referring, communicating with other health customer care consultant, indepentently interpreting results, counseling the patient and care coordination
--- NOTE | 2024-05-20 09:20 | INITIAL_ITS ---
Date of service: 05/20/24 Time of Service: 09:20 Care Management Initial Assmt Initial Assessment Reason for Hospitalization: alcohol withdrawal Functional Status/Living Situation Patient Presentation: Oz was lying in bed in the ICU when CM met with him. He was pleasant in manner and engaged well with CM. Oz was admitted with intractable vomiting and alcohol withdrawal. He is on the phenobarbital protocol and has reached his soft stop. His CIWA score was 20 this morning and he was medicated. The last documented score at noon was 4. Oz lives in a single family home in [place] with his brother Zach. 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 He has one 17 year old son that he is close to and for whom continues to pay child support. Oz is independent at baseline. In addition to unemployment, he receives food stamps in the winter. Town of Residence: [place] Resides with: Alone Employment Status: Employed ([employer]) Instrumental Activities of Daily Living (ADLs): Independent Medications Medication Management: No Issues/Barriers identified Advance Directives Advance Directives: Do you have an Advance Directive: N 10/15/14 05:22 AD On File at [facility]: N 01/02/13 10:59 Date Asked 05/19/24 05/19/24 16:16 AD Date Reviewed COLST On File at [facility] No 05/19/24 17:15 COLST Date Scanned Code Status Resuscitation Status Full Code Portal Pt does not currently have a portal and education provided: No Insurance Coverage/Financial Issues Insurance: self pay Care Team Visit Care Team Role Provider Type None None Primary Care Provider NON-[facility] STAFF PHYSICIAN Hope Chu MD Emergency Provider [facility] STAFF PHYSICIAN Samir Monge Admit Provider NON-[facility] STAFF PHYSICIAN Attending Provider Discharge Potential Discharge Needs: Other (follow up appointment with Kenneth ([facility])) Anticipated Barriers to Discharge: None Identified Patient/Family Education Needs: Review discharge instructions, discuss Ask Me Three Transportation: Private vehicle Plan: Anticipate Oz will be discharged home with no new services when medically stable. He will follow up with his Nishant-Xavier appointment ([facility]) and transport with family. CM will follow and continue to assess for discharge needs. Social Determinants of Health Screening Will the Patient Participate in the Screening?: Unable to obtain Do you worry about having a steady place to live?: no Social Determinants of Health Comments(SDOH Details): The patient at this time is completely unable to appropriately participate in admission screening due to AMS; questions should be asked at a later time/date. PFSH All Active Problems (Updated 05/20/24 @ 09:02 by Rene Montesinos) DVT prophylaxis (Acute) Gastroenteritis (Acute) Substance use disorder (Chronic) Acute dehydration (Acute) Seizure (Acute) Alcohol abuse with withdrawal (Acute) Nicotine dependence (Chronic) As reported by Burt Matias Alcohol dependence (Acute) As reported by Burt Matias Social History Smoking/Tobacco Use Status: Current every day Quit status: considering quitting Smoking risk assessment performed?: Yes Alcohol Intake: current Alcohol Intake frequency: 3 or more drinks per day Drug use: Daily Substance use type: former substance user Adopted: No Caregiver/Support person: No Foster care: No Household members: family Housing: house Number of Children: 1 Communication Needs: None Education Level: high school Do you need help understanding health information?: Often 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 Pets and animals: No Do you think of yourself as: straight/heterosexual Current gender identity: male What is your relationship status?: never How often do you talk on the phone with friends or family?: three or more times per week How often do you get together with friends or relatives?: three or more times per week Do you belong to any clubs or organized social groups?: no Panel score (0-1 are the most socially isolated patients): 1 What type of physical activity do you participate in: walking and additional Details: hiking Duration: 15-30 minutes/day Frequency: 1-2 times per week Kendal/Confucianism: None Seatbelt use: sometimes Helmet use: No Drive intox or ride w/intox tanker driver: No
[2024-05-20] MEDS: POTASSIUM CHLORIDE 20 MEQ/100 ML BAG 50 MEQ IV_INF (10:16)
[2024-05-20] MEDS: THIAMINE 500 MG in Normal Saline 100 ML 200 MG IVPB ×2 (11:48→20:00)
[2024-05-20] MEDS: MULTIVITAMIN 10 ML, THIAMINE 100 MG, FOLIC ACID 1 MG in DEXTROSE 5%-0.45% SALINE 1,000 ML 150 ML IV (12:02)
[2024-05-20 18:16] LABS: Prolactin 22.8 ng/mL (2.1-17.7)
[2024-05-20] MEDS: dexmedeTOMidine IN 0.9 % NACL 400 MCG/100 ML BTL 8.4 MCG IV (18:40)
[2024-05-20] MEDS: POTASSIUM CHLORIDE/D5-0.9%NACL 1,000 ML 125 MEQ IV (18:55)
[2024-05-20] MEDS: dexmedeTOMidine IN 0.9 % NACL 400 MCG/100 ML BTL 15.12 MCG IV (22:07)
[2024-05-20] MEDS: HYDROmorphone 2 MG/ML SYR 0.5 MG IVP (22:08)
[2024-05-21] VITALS (52 sets, daily range): BP systolic 109–142; BP diastolic 64–99; PULSE 66–146; RESP 13–34; TEMP 36.7–37.6; O2SAT 88–98
--- NOTE | 2024-05-21 | DI.RAD_ITS ---
Exam(s) XR PORTABLE CHEST AP EXAM: XR PORTABLE CHEST AP CLINICAL HISTORY: hypoxia, cough. TECHNIQUE: 2D digital imaging was performed. COMPARISON: No exams were available for comparison FINDINGS: Single AP portable view. Heart size is upper normal. The mediastinum is not widened. Lungs are clear. No infiltrates nor obvious pleural effusions. IMPRESSION: No acute pulmonary findings on this single AP portable view of the chest. DATA REPOSITORY: RADIATION DOSE DELIVERED:
[2024-05-21 00:33] LABS: ALT 41 U/L (16-63); AST 47 U/L (15-37); Albumin 2.9 g/dL (3.4-5.0); Alkaline Phosphatase 52 U/L (46-116); Anion Gap 6.9 mmol/L (3-11); BUN 4 mg/dL (7-18); Bilirubin, Total 0.91 mg/dL (0.2-1.0); CO2 26.1 mmol/L (21.0-32.0); CREATININE 0.8 mg/dL (0.70-1.30); Calcium 8.3 mg/dL (8.5-10.1); Chloride 107 mmol/L (98-107); Estimated GFR 116.17 (mL/min/1.73m2); Glucose 151 mg/dL (74-106); Potassium 3.3 mmol/L (3.5-5.1); Sodium 140 mmol/L (136-145); Total Protein 6.2 g/dL (6.4-8.2)
[2024-05-21] MEDS: HYDROmorphone 2 MG/ML SYR 0.5 MG IVP ×3 (00:57→23:45)
[2024-05-21] MEDS: THIAMINE 500 MG in Normal Saline 100 ML 200 MG IVPB ×3 (02:22→17:35)
[2024-05-21] MEDS: dexmedeTOMidine IN 0.9 % NACL 400 MCG/100 ML BTL 10.08 MCG IV (04:09)
[2024-05-21] MEDS: POTASSIUM CHLORIDE/D5-0.9%NACL 1,000 ML 125 MEQ IV (05:18)
[2024-05-21 06:49] LABS: Abs Immature Grans 0.04 10^3/uL (0.0-0.06); Absolute Basophil Count 0.04 10^3/uL (0.0-0.2); Absolute Eosinophil Count 0.21 10^3/uL (0.0-0.7); Absolute Lymphocyte Count 0.77 10^3/uL (1.2-3.4); Absolute Monocyte Count 0.69 10^3/uL (0.1-0.8); Basophils % 0.6 %; HCT 35.8 % (40.0-50.0); Immature Grans % 0.6 %; Lymphocytes % 11.1 %; MCH 31.6 pg (27.0-33.0); MCHC 33.5 % (32.0-36.0); MCV 94 fL (80-95); MPV 11.3 fL (8.0-11.0); Monocytes % 9.9 %; Neutrophils % 74.8 %; Platelet Count 103 10^3/uL (130-400); RDW 12.5 % (11.8-14.1); RDW-SD 43.3 fL; WBC 6.95 10^3/uL (4.4-10.8)
[2024-05-21 07:05] LABS: ALT 38 U/L (16-63); AST 40 U/L (15-37); Albumin 2.8 g/dL (3.4-5.0); Alkaline Phosphatase 53 U/L (46-116); Anion Gap 8.4 mmol/L (3-11); BUN 5 mg/dL (7-18); Bilirubin, Direct 0.3 mg/dL (0.0-0.2); Bilirubin, Total 0.81 mg/dL (0.2-1.0); CO2 25.6 mmol/L (21.0-32.0); CREATININE 0.7 mg/dL (0.70-1.30); Calcium 8.2 mg/dL (8.5-10.1); Chloride 107 mmol/L (98-107); Estimated GFR 120.95 (mL/min/1.73m2); Glucose 130 mg/dL (74-106); Magnesium 1.8 mg/dL (1.8-2.4); PHOSPHORUS 3.3 mg/dL (2.6-4.7); Potassium 3.1 mmol/L (3.5-5.1); Sodium 141 mmol/L (136-145); Total Protein 6.3 g/dL (6.4-8.2)
--- NOTE | 2024-05-21 08:39 | PDOC.CMPRO ---
Date of service: 05/21/24 Time of Service: 08:39 Care Management Progress Note Progress Note Text Progress Note Text: Oz was sitting up in bed visiting with his mother Fern when CM met with him. He was more awake and responsive today. Oz continues to require medication for his withdrawal symptoms. He reached the hard stop on the phenobarbital and was started on a Precedex drip last evening. Today his CIWA scores have been 4-6 most of the day. CM spoke with a CHW from [employer] ([place]) who is trying to help Oz sign up for Medicaid. She indicated that she felt he would likely be eligible. CM explained the process for obtaining a new PCP to Oz. He will be scheduled for one T-doc appointment with Mary Gray and can fill out paperwork if he wants to stay with the practice. CM inquired if Oz would be willing to meet with a polo coach. He agreed to see someone tomorrow. Oz's Mom shared some of the past issues Oz has had to deal with. His father apparently had KACEY issues as well and about 3 years ago. Fern had left him a few years before and moved to [place]. She shared that Oz and his 2 brothers all had a difficult time with their Dad's . Discharge Potential Discharge Needs: Other (establish with new PCP) Anticipated Barriers to Discharge: None Identified Patient/Family Education Needs: Review discharge instructions, discuss Ask Me Three Transportation: Private vehicle Plan: Anticipate Oz will be discharged home with no new services when medically stable. He will follow up with his T-Doc appointment ([facility]) and transport with family. CM will follow and continue to assess for discharge needs. Social Determinants of Health Screening Will the Patient Participate in the Screening?: Unable to obtain Do you worry about having a steady place to live?: no Social Determinants of Health Comments(SDNE Details): The patient at this time is completely unable to appropriately participate in admission screening due to AMS; questions should be asked at a later time/date.
[2024-05-21] MEDS: POTASSIUM CHLORIDE 20 MEQ/100 ML BAG 50 MEQ IV_INF (10:15)
[2024-05-21] MEDS: dexmedeTOMidine IN 0.9 % NACL 400 MCG/100 ML BTL 11.76 MCG IV (10:28)
--- NOTE | 2024-05-21 12:37 | W.PM.PROGNOT ---
Date of Service Date of service: 05/21/24 Time of Service: 09:30 Assessment and Plan Assessment and plan (1) Alcohol abuse with withdrawal: Start date: 05/19/24 Status: Acute Assessment and plan: Negative alcohol level at admission, usually drinking 12 to 18 beers a day, likely had been drinking less for a few days with acute illness. He has had alcohol withdrawal in the past but no alcohol withdrawal seizures. On phenobarbital alcohol withdrawal protocol maxed out, though level normal, could repeat PRN dose if needed. On precedex for sedation, try to wean today. There was concern for DTs given we may be 2-3 days into withdrawal already and report of hallucinations, some hyperthermia, these haveve resolved. No oculomotor signs, hard to conciliation court judge ataxia, at risk for wernickes so on high dose thiamine. (2) Hypoxia: Status: Acute Assessment and plan: CXR negative. Likely atelectasis a/w sedation. Get moving. Try albuterol, acapella/IS. (3) Gastroenteritis: Start date: 05/19/24 Status: Acute Assessment and plan: Bowel rest with clear fluid diet as tolerated, lipase normal. No longer having diarrhea, can cancel c.diff. Pain better. Progress diet, oral fluids, cut IV fluid rate to 50ml/hr. (4) Substance use disorder: Status: Chronic Assessment and plan: Patient does heavily use THC by history but no evidence of other substance abuse. The VPMS is negative for any prescribed controlled substances. Urine drug screen is negative for any illicit drugs but positive for THC, no other use per family. Offer therapy for alcohol use disorder once he is through withdrawal, started to discuss today. (5) DVT prophylaxis: Status: Acute Assessment and plan: enoxaparin Subjective Subjective Patient reports: tolerating liquids well and voiding w/o difficulty; denies nausea, vomiting or fever Interval history since last seen: 24 hr: started precedex drip 05/20 evening for agitation, phenobarbitol maxed out Received hydromorphone for abdominal cramping overnight Requiring 2 liters nasal cannuala overnight, more cough. No stool since yesterday He states he is feeling better this morning. No pain, including abdominal pain. Coughing, but not SOB. He has used inhaler in the past. Less anxious. Exam Narrative Exam Narrative: General: Alert and oriented to self, time, state [facility] ([facility] Cooperative. HEENT: pupils mid sized and reactive, no icterus. Lungs: CTAB, normal effort Heart: RRR without murmur or gallop appreciated. Abdomen: soft, NT/ND Extremities: Without clubbing, cyanosis or pitting edema. Peripheral pulses intact. Neuro: focalizing motor deficits. No tremor. Psych: normal mood/affect, no hallucinations. Objective Last Vital Signs Temp 36.8 C 05/21/24 07:02 Pulse 146 H 05/21/24 08:02 Resp 34 H 05/21/24 08:02 BP 132/92 H 05/21/24 07:02 Pulse Ox 92 05/21/24 09:44 Laboratory Results - last 24 hr 05/19/24 05/20/24 05/21/24 16:15 23:12 05:28 WBC 6.95 RBC 3.80 L Hgb 12.0 L Hct 35.8 L MCV 94 D MCH 31.6 MCHC 33.5 RDW 12.5 Plt Count 103 L MPV 11.3 H Immature Gran % 0.6 Neutrophils % 74.8 Lymphocytes % 11.1 Monocytes % 9.9 Eosinophils % 3.0 Basophils % 0.6 Nucleated RBC % 0.0 Absolute Neutrophils 5.20 Absolute Lymphocytes 0.77 L Absolute Monocytes 0.69 Absolute Eosinophils 0.21 Absolute Basophils 0.04 Sodium 140 141 Potassium 3.3 L 3.1 L Chloride 107 107 Carbon Dioxide 26.1 25.6 Anion Gap 6.9 8.4 BUN 4 L 5 L Creatinine 0.8 0.7 Est GFR (CKD-EPI 2020) 116.17 120.95 Glucose 151 H 130 H Calcium 8.3 L 8.2 L Phosphorus 3.3 Magnesium 1.8 Total Bilirubin 0.91 0.81 Conjugated Bilirubin 0.3 H AST 47 H 40 H ALT 41 38 Alkaline Phosphatase 52 53 Total Protein 6.2 L 6.3 L Albumin 2.9 L 2.8 L Prolactin 22.8 H Phenobarbital 24.0 PAWSS Have you Been Recently Intoxicated or Drunk Within the Last 30 days?: Yes Have you Ever Experienced Previous Episodes of Alcohol Withdrawal?: Yes Have you ever Experienced Withdrawal Seizures?: Yes Have you ever Experienced Delirium Tremens(DT)s?: Yes Have you ever undergone Alcohol Rehabilitation Treatment (i.e, inpt ot outpatient treatment programs)?: Yes Have you ever Experienced Blackouts?: Yes Have you ever Combined Alcohol with other Downers within the last 90 days?: Yes Have you ever Combined Alcohol with any other Substance of Abuse during the last 90 days?: Yes Positive Blood Alcohol level on Presentation? [PCS.BAL]: Yes Evidence of Increased Autonomic Activity (i.e. HR>120, tremor, sweating, agitation, nausea)?: Yes Result: 10 Time Spent with Patient Time Spent with Patient: >50 minutes Time was spent: preparing to see the patient(eg.review tests), obtaining and/or reviewing separately otained hiistory, ordering medications,tests, procedures, referring, communicating with other health career discovery teacher, indepentently interpreting results, counseling the patient and care coordination
[2024-05-21] MEDS: POTASSIUM CHLORIDE/D5-0.9%NACL 1,000 ML 50 MEQ IV (17:36)
[2024-05-21] MEDS: dexmedeTOMidine IN 0.9 % NACL 400 MCG/100 ML BTL 6.72 MCG IV (19:23)
[2024-05-21] MEDS: Enoxaparin 40 MG/0.4 ML SYR SC (20:11)
[2024-05-21] MEDS: Normal Saline Flush 10 ML SYR IVP (20:11)
[2024-05-22] VITALS (44 sets, daily range): BP systolic 111–155; BP diastolic 66–110; PULSE 62–116; RESP 12–26; TEMP 36.5–37.8; O2SAT 87–98
--- NOTE | 2024-05-22 | DI.RAD_ITS ---
Exam(s) XR ABDOMEN FLAT PLATE EXAM: XR ABDOMEN FLAT PLATE CLINICAL HISTORY: persistent abdominal pain. TECHNIQUE: 2D digital imaging was performed. COMPARISON: CR XR PORTABLE CHEST AP from 05/21/2024 FINDINGS: AP supine view of the abdomen-pelvis. The bowel gas pattern is nonspecific in the supine position. The stomach is not distended. There is air seen in a nondilated transverse colon as well as some air-gas noted in the descending-left colon and ascending-right colon. No evidence of constipation. There is air seen in the rectum. There ar e no grossly dilated small bowel loops. Cannot assess for free air as this is supine image. However , this patient had an upright portable chest x-ray yesterday which did not reveal free air subjacent to the hemidiaphragms. No obvious masses nor bowel displacement. No abnormal calcifications. Benign phleboliths are noted in both sides of the pelvis. Regional bones appear unremarkable. IMPRESSION: Nonspecific bowel gas pattern as described above. DATA REPOSITORY: RADIATION DOSE DELIVERED:
[2024-05-22] MEDS: THIAMINE 500 MG in Normal Saline 100 ML 200 MG IVPB ×3 (02:27→18:14)
[2024-05-22] MEDS: dexmedeTOMidine IN 0.9 % NACL 400 MCG/100 ML BTL 8.4 MCG IV (04:54)
[2024-05-22] MEDS: HYDROmorphone 2 MG/ML SYR 0.5 MG IVP ×3 (05:03→23:58)
[2024-05-22] MEDS: Omeprazole 20 MG CAPCR PO (06:04)
[2024-05-22 06:27] LABS: Anion Gap 10.5 mmol/L (3-11); BUN 5 mg/dL (7-18); CO2 23.5 mmol/L (21.0-32.0); CREATININE 0.9 mg/dL (0.70-1.30); Calcium 8.7 mg/dL (8.5-10.1); Chloride 107 mmol/L (98-107); Estimated GFR 112.11 (mL/min/1.73m2); Glucose 121 mg/dL (74-106); Magnesium 1.7 mg/dL (1.8-2.4); Potassium 3.5 mmol/L (3.5-5.1); Sodium 141 mmol/L (136-145)
--- NOTE | 2024-05-22 09:23 | PDOC.CMPRO ---
Date of service: 05/22/24 Time of Service: 09:23 Care Management Progress Note Progress Note Text Progress Note Text: Oz was sitting up in bed visiting with his mother when CM met with him. he was bright and alert and immediately engaged with CM. CM inquired if he had spoken to the [employer] and Oz confirmed he had. Earlier in the day CM had reached out to the horse riding coach or instructor requesting services. Oz appeared quite excited by the exchange. He informed CM that the would be calling him every day for 10 days at 8 an to check in and provide support. He was also told that they would assist with getting him connected to [facility] services for ongoing outpatient support. Oz verbalized really wanting to remain sober. He stated he wanted to do it for his family,especially his son , but most importantly, for himself. His mother commented that he has a large family who are all happy to support him through this process. Two of his cousins drove up from [place] to see him on Sunday and his son is planning to visit tomorrow. Discharge Potential Discharge Needs: PCP F/U Appt Anticipated Barriers to Discharge: None Identified Patient/Family Education Needs: Review discharge instructions, discuss Ask Me Three Transportation: Private vehicle Plan: Anticipate Oz will be discharged home with no new services when medically stable. He will follow up with his T-Doc appointment ([facility]) and transport with family. CM will follow and continue to assess for discharge needs. Social Determinants of Health Screening Will the Patient Participate in the Screening?: Unable to obtain Do you worry about having a steady place to live?: no Social Determinants of Health Comments([facility] Details): The patient at this time is completely unable to appropriately participate in admission screening due to AMS; questions should be asked at a later time/date.
[2024-05-22] MEDS: MAGNESIUM SULFATE 2 GM/50 ML BAG IV_INF (10:33)
[2024-05-22] MEDS: Normal Saline Flush 10 ML SYR IVP ×2 (11:13→20:08)
--- NOTE | 2024-05-22 15:38 | CHAPLAIN ---
Jag was in bed when I visited. He was pleasant and easily engaged in conversation. He had a family/friend (his mom, maybe) in the room with him. I explained my role and offered support.
--- NOTE | 2024-05-22 16:45 | PGE_ITS ---
Date of Service Date of service: 05/22/24 Time of Service: 16:46 Assessment and Plan Assessment and plan (1) Alcohol abuse with withdrawal: Start date: 05/19/24 Status: Acute Assessment and plan: Negative alcohol level at admission, usually drinking 12 to 18 beers a day, likely had been drinking less for a few days with acute illness. He has had alcohol withdrawal in the past but no alcohol withdrawal seizures. On phenobarbital alcohol withdrawal protocol maxed out, though level normal, could repeat PRN dose if needed. On precedex for sedation, try to wean today. There was concern for DTs given we may be 2-3 days into withdrawal already and report of hallucinations, some hyperthermia, these haveve resolved. 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 2.25 Weaning precedex as tolerated (2) Hypoxia: Status: Acute Assessment and plan: CXR negative. Likely atelectasis a/w sedation. Get moving. Try albuterol, acapella/IS. (3) Gastroenteritis: Start date: 05/19/24 Status: Acute Assessment and plan: Bowel rest with clear fluid diet as tolerated, lipase normal. No longer having diarrhea, can cancel c.diff. Pain better. Progress diet, oral fluids, cut IV fluid rate to 50ml/hr. 2.25 KUB wnl, question whether abd discomfort is from cessation of daily THC use. No infectious/anatomic problem noted at this time (4) Substance use disorder: Status: Chronic Assessment and plan: Patient does heavily use THC by history but no evidence of other substance abuse. The VPMS is negative for any prescribed controlled substances. Urine drug screen is negative for any illicit drugs but positive for THC, no other use per family. Offer therapy for alcohol use disorder once he is through withdrawal, started to discuss today. (5) DVT prophylaxis: Status: Acute Assessment and plan: enoxaparin Subjective Subjective Interval history since last seen: Pt seen and examined this am. Pt brushing his teeth. POC d/w bedside nurse during ICU huddle. Pt does complain of tongue pain, presumably from biting tongue during a seizure Exam Narrative Exam Narrative: HEENT: NCAT RESP: NO AMU, NO DISTRESS GEN: 38 Y/O APPEARS HIS STATED AGE PSYCH: ALERT AND RESPONDS TO VERBAL STIMULI Objective Last Vital Signs Temp 37.8 C H 02/13/25 16:00 Pulse 92 H 05/22/24 16:04 Resp 17 05/22/24 16:04 BP 152/102 H 05/22/24 16:04 Pulse Ox 96 05/22/24 16:04 Laboratory Results - last 24 hr 05/22/24 05:35 Sodium 141 Potassium 3.5 Chloride 107 Carbon Dioxide 23.5 Anion Gap 10.5 BUN 5 L Creatinine 0.9 Est GFR (CKD-EPI 2020) 112.11 Glucose 121 H Calcium 8.7 Magnesium 1.7 L PAWSS Have you Been Recently Intoxicated or Drunk Within the Last 30 days?: Yes Have you Ever Experienced Previous Episodes of Alcohol Withdrawal?: Yes Have you ever Experienced Withdrawal Seizures?: Yes Have you ever Experienced Delirium Tremens(DT)s?: Yes Have you ever undergone Alcohol Rehabilitation Treatment (i.e, inpt ot outpatient treatment programs)?: Yes Have you ever Experienced Blackouts?: Yes Have you ever Combined Alcohol with other Downers within the last 90 days?: Yes Have you ever Combined Alcohol with any other Substance of Abuse during the last 90 days?: Yes Positive Blood Alcohol level on Presentation? [PCS.BAL]: Yes Evidence of Increased Autonomic Activity (i.e. HR>120, tremor, sweating, agitation, nausea)?: Yes Result: 10 Time Spent with Patient Time Spent with Patient: <25 minutes Time was spent: preparing to see the patient(eg.review tests), obtaining and/or reviewing separately otained hiistory, ordering medications,tests, procedures, referring, communicating with other health resident care director, indepentently interpreting results, counseling the patient and care coordination
[2024-05-22] MEDS: POTASSIUM CHLORIDE/D5-0.9%NACL 1,000 ML 50 MEQ IV (16:57)
[2024-05-22] MEDS: Enoxaparin 40 MG/0.4 ML SYR SC (20:07)
[2024-05-22] MEDS: Lidocaine 2% Viscous 15 ML CUP 5 ML MC (20:07)
--- NOTE | 2024-05-22 23:58 | NUR.NOTE ---
Nursing Note: Pt very anxious, restless, having a lot of tongue pain from injury, 11/16, that occurred during seizure at home, viscous lidocaine not working, pt requesting dilaudid that has worked before on previous night, med given, precedex gtt of mid day, will continue to monitor, bed in lowest position, call light within reach, will monitor, bed alarm on.
[2024-05-23] VITALS (32 sets, daily range): BP systolic 100–160; BP diastolic 58–111; PULSE 61–110; RESP 9–26; TEMP 36.6–37.6; O2SAT 93–99
[2024-05-23] MEDS: THIAMINE 500 MG in Normal Saline 100 ML 200 MG IVPB (00:13)
[2024-05-23] MEDS: Acetaminophen 325 MG TAB PO ×2 (00:52→06:29)
[2024-05-23] MEDS: HYDROmorphone 2 MG/ML SYR 0.5 MG IVP (03:34)
[2024-05-23 06:32] LABS: Abs Immature Grans 0.04 10^3/uL (0.0-0.06); Absolute Basophil Count 0.06 10^3/uL (0.0-0.2); Absolute Lymphocyte Count 1.08 10^3/uL (1.2-3.4); Absolute Monocyte Count 0.95 10^3/uL (0.1-0.8); Absolute Neutrophil Count 4.45 10^3/uL (1.2-6.7); Basophils % 0.9 %; Eosinophils % 2.9 %; HCT 34.2 % (40.0-50.0); HGB 11.7 g/dL (13.5-17.5); Immature Grans % 0.6 %; Lymphocytes % 15.9 %; MCH 32.1 pg (27.0-33.0); MCHC 34.2 % (32.0-36.0); MCV 94 fL (80-95); MPV 10.4 fL (8.0-11.0); Neutrophils % 65.7 %; Platelet Count 141 10^3/uL (130-400); RBC 3.64 10^6/uL (4.36-5.78); RDW 12.3 % (11.8-14.1); RDW-SD 42.9 fL; WBC 6.78 10^3/uL (4.4-10.8)
[2024-05-23 07:05] LABS: ALT 29 U/L (16-63); AST 50 U/L (15-37); Albumin 2.8 g/dL (3.4-5.0); Alkaline Phosphatase 55 U/L (46-116); Anion Gap 7.7 mmol/L (3-11); BUN 4 mg/dL (7-18); Bilirubin, Total 0.72 mg/dL (0.2-1.0); CO2 24.3 mmol/L (21.0-32.0); CREATININE 0.9 mg/dL (0.70-1.30); Calcium 8.7 mg/dL (8.5-10.1); Chloride 106 mmol/L (98-107); Estimated GFR 112.11 (mL/min/1.73m2); Glucose 100 mg/dL (74-106); Potassium 3.8 mmol/L (3.5-5.1); Sodium 138 mmol/L (136-145); Total Protein 6.6 g/dL (6.4-8.2)
[2024-05-23] MEDS: Thiamine 100 MG TAB PO (08:59)
[2024-05-23] MEDS: Normal Saline Flush 10 ML SYR IVP (09:00)
--- NOTE | 2024-05-23 12:11 | DSE_ITS ---
Date of service: 05/23/24 Time of Service: 12:12 DS: Diagnosis Discharge Diagnosis (1) Alcohol abuse with withdrawal: Status: Acute (2) Hypoxia: Status: Acute (3) Gastroenteritis: Status: Acute (4) Substance use disorder: Status: Chronic (5) DVT prophylaxis: Status: Acute Discharge Plan Disposition Patient Disposition: Home Condition: Stable Discharge Details Reason For Visit: Alcohol withdrawal, Dehydration with intractable n Admit Date/Time: 05/19/24 23:38 Admit Provider: Rene Montesinos Attending Provider: Brandon James Primary Care Provider: None,None Hospital Course Hospital Course: This is a 30-year-old gentleman who presented to the ED on 19 May for alcohol withdrawal as well as dehydration. At the time of admission he was diagnosed with alcohol use disorder was put on the phenobarbital protocol as well as gastroenteritis which has since resolved as well as dehydration which has since resolved and substance use disorder including daily use of THC. Patient did improve in regards to his symptomology over the next 4 days and on the we recommended discharge to which he agreed. In reviewing the case management note his CIWA scores were fairly benign and he does have follow-up for alcohol use disorder including a T doc appointment. According to my discussion with the patient is very anxious to start on a journey of recovery and quit using alcohol and marijuana. Of note while he was here he did complain of tongue pain and it appears that he did bite his lip prior to admission and this is being treated successfully with lidocaine gel. In terms of diagnostics his latest white count was within normal limits he did have a mild anemia that we will need outpatient workup at the discretion of his PCP he did have some thrombocytopenia with a value of 103 on admission but this is resolved his potassium was 3.1 on admission but is now within normal limits BUN and creatinine within normal limits patient mild transaminitis with a AST of 50 ALT of 29. Regards to imaging chest x-ray was done on the with results being within normal limits head and cervical spine film were done on admission which was essentially benign KUB was done on the due to abdominal pain and this was also benign. Patient will be discharged in good health. I will send prescriptions over to his pharmacy for lidocaine. Pt also given a prescription for thiamine. Home Meds and New Rx's Prescriptions: New lidocaine HCl 2 % Solution 5 ml miscellaneous Q4H PRN PRNQty: 100 0RF thiamine mononitrate (vit B1) [Vitamin B-1 (mononitrate)] 100 mg Tablet 100 mg PO DAILY Qty: 30 0RF No Action No Known Home Meds Discharge Instructions Referrals: None,None [Primary Care Provider] - (Pt will need to arrange follow up with PCP in the outpatient setting) Activity:: Activity as Tolerated Equipment/Supplies:: No Equipment Needed Diet:: As Tolerated Discharge Orders Discharge Orders: Discharge Order (Routine); Ordered 05/23/24 Ordered By: Brandon James DS: Summary Time Spent with Patient providing and/or coordinating discharge services: Less than 30 minutes Status at Discharge Functional status at discharge: independent ambulation Overall status at discharge: patient is back to baseline Mental Status: mental status grossly normal Speech and Movement: speech and movement normal Mood: congruent mood Affect: normal affect Quality:SDOH Health Related Social Needs: No Data to Display Exam Narrative Exam Narrative: HEENT: NCAT RESP: NO AMU, NO DISTRESS GEN: 38 Y/O APPEARS HIS STATED AGE PSYCH: ALERT AND RESPONDS TO VERBAL STIMULI ecchymosis on lateral aspect of right tongue Psych Mental Status: mental status grossly normal Speech and Movement: speech and movement normal Mood: congruent mood Affect: normal affect DS: Data Vitals/I&O Vitals and I&O: Vital Signs Temperature 36.9 C 05/23/24 08:04 Temperature Source Oral 05/23/24 03:30 Pulse 82 05/23/24 11:01 Pulse Rhythm Regular 05/20/24 01:46 Pulse 87 05/23/24 11:01 Respiratory Rate 21 05/23/24 11:01 Respiratory Effort Normal 05/20/24 06:01 Respiratory Depth Normal 05/20/24 06:01 Respiratory Pattern Tachypnea 05/20/24 06:01 Blood Pressure 119/104 H 05/23/24 11:01 Blood Pressure Mean 110 05/23/24 11:01 Pulse Oximetry 96 05/23/24 11:01 Oxygen Delivery Method Room Air 05/23/24 03:30 Oxygen Flow Rate 0 05/23/24 03:30 Pain Level 7 05/23/24 06:29 Intake & Output 05/22/24 05/23/24 05/23/24 23:59 11:59 23:59 Intake Total 1454.501 / 2157.877 225 / 225 Output Total 2375 / 2375 1800 / 1800 Balance -920.499 / -217.123 -1575 / -1575 Weight 82.9 kg Intake: IV 1101.501 / 1414.877 105 / 105 Oral 353 / 743 120 / 120 Output: Urine 2374 1800 / 1800 Other: Urine Color Yellow Yellow Urine Appearance Clear Clear Urine Odor Normal None Stool Size Moderate Stool Characteristics Liquid Data Completed and Pending Labs on day of discharge: Labs from last 24 hours 05/23/24 05:36 WBC 6.78 RBC 3.64 L Hgb 11.7 L Hct 34.2 L MCV 94 MCH 32.1 MCHC 34.2 RDW 12.3 Plt Count 141 MPV 10.4 Immature Gran % 0.6 Neutrophils % 65.7 Lymphocytes % 15.9 Monocytes % 14.0 Eosinophils % 2.9 Basophils % 0.9 Nucleated RBC % 0.0 Absolute Neutrophils 4.45 Absolute Lymphocytes 1.08 L Absolute Monocytes 0.95 H Absolute Eosinophils 0.20 Absolute Basophils 0.06 Sodium 138 Potassium 3.8 Chloride 106 Carbon Dioxide 24.3 Anion Gap 7.7 BUN 4 L Creatinine 0.9 Est GFR (CKD-EPI 2020) 112.11 Glucose 100 Calcium 8.7 Total Bilirubin 0.72 AST 50 H ALT 29 Alkaline Phosphatase 55 Total Protein 6.6 Albumin 2.8 L Preliminary micro results at discharge 05/19/24 17:11 Blood Culture - Preliminary Blood NO GROWTH 72 HOURS 05/19/24 17:02 Blood Culture - Preliminary Blood NO GROWTH 72 HOURS PFSH All Active Problems (Updated 05/21/24 @ 12:43 by Rene Montesinos) Hypoxia (Acute) DVT prophylaxis (Acute) Gastroenteritis (Acute) Substance use disorder (Chronic) Acute dehydration (Acute) Seizure (Acute) Alcohol abuse with withdrawal (Acute) Nicotine dependence (Chronic) As reported by Burt Matias Alcohol dependence (Acute) As reported by Burt Matias Social History Smoking/Tobacco Use Status: Current every day Quit status: considering quitting Smoking risk assessment performed?: Yes Alcohol Intake: current Alcohol Intake frequency: 3 or more drinks per day Drug use: Daily Substance use type: former substance user Adopted: No Caregiver/Support person: No Foster care: No Household members: family Housing: house Number of Children: 1 Communication Needs: None Education Level: high school Do you need help understanding health information?: Often 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 Pets and animals: No Do you think of yourself as: straight/heterosexual Current gender identity: male What is your relationship status?: never How often do you talk on the phone with friends or family?: three or more times per week How often do you get together with friends or relatives?: three or more times per week Do you belong to any clubs or organized social groups?: no Panel score (0-1 are the most socially isolated patients): 1 What type of physical activity do you participate in: walking and additional Details: hiking Duration: 15-30 minutes/day Frequency: 1-2 times per week Kendal/Adventism: None Seatbelt use: sometimes Helmet use: No Drive intox or ride w/intox armored car guard and driver: No Time Spent with Patient Time Spent with Patient: 45-69 minutes Time was spent: preparing to see the patient(eg.review tests), obtaining and/or reviewing separately otained hiistory, ordering medications,tests, procedures, referring, communicating with other health long term care phlebotomist, indepentently interpreting results, counseling the patient and care coordination
--- NOTE | 2024-05-23 14:39 | PDOC.CMDIS ---
Date of service: 05/23/24 Time of Service: 14:39 LACE Index Scoring Tool Questions: Length of Stay (in days): 4 - 6 Was the patient admitted via the E.D.?: Yes E.D. Visits: 1 Answers: Total Score: 8 Risk of Readmission: Low Risk Care Management Discharge Plan Reason for Hospitalization: ETOH withdrawal Discharge Plan: Oz will be discharged home with no new services. He will follow up with his Reproduction Technician and with outpatient KACEY treatment through [facility]. Oz will also have a follow up appointment with Dr. Cadena at [facility] on 05/29/24 at 8am. He will transport home with family. Patient/Family Education Needs: Review of discharge instructions, limitations, follow up plan and discuss Ask Me Three Services Needed at Discharge: Outpatient Therapy SDOH Health Related Social Needs: No Data to Display
== END 2024-05-23 18:30 | disposition home or self-care (01) | DRG 897 ==
LOC: ER 05-20 00:39 → MS 05-20 01:13 → ICU 05-20 06:00
PROVIDERS: Family Medicine; General Practice; Admitting Provider Family Medicine; Emergency Provider Student in an Organized Health Care Education/Training Program; Responsible Provider Hospitalist; Visit Provider Hospitalist
DX: F10.131 Alcohol abuse with withdrawal delirium (principal); R56.9 Unspecified convulsions; F12.90 Cannabis use, unspecified, uncomplicated; D64.9 Anemia, unspecified; E86.0 Dehydration; K52.9 Noninfective gastroenteritis and colitis, unspecified; F17.210 Nicotine dependence, cigarettes, uncomplicated; R09.02 Hypoxemia
CPT/HCPCS: 00123; 36415; 71275; 80048; 80053; 80076; 80307; 83690; 87040; 87637; 93005; 96365; 96366; 96372; 99285; J1650; 70450; 71045; 72125; 74018; 80184; 80320; 81003; 81015; 83735; 84100; 84146; 84484; 85025; 85379; 93010; 94667; 99223; 99231; 99233; 99239; J1171; J2060; J2560; J3411; J3475; J3480; J3490